=== PATIENT | female | born 2000 | race Caucasian/White ===

== ENCOUNTER 2023-11-14 09:10 | Emergency (ER) | payer BC, OTHER ==
[~2023-11-14] VITALS: Ht 172.7 cm; Wt 90.7 kg
[2023-11-14] MEDS: IV NORMAL SALINE 1000 ML BAG IV ONE (09:32)
[2023-11-14 09:38] LABS: BASOPHILS # (AUTO) 0.1 K/UL (0.0-0.2); EOSINOPHILS # (AUTO) 0.1 K/uL (0.0-0.7); EOSINOPHILS % (AUTO) 1.1 % (0.0-7.0); HEMATOCRIT 38.6 % (31.2-41.9); HEMOGLOBIN 12.6 g/dL (10.9-14.3); LYMPHOCYTES # (AUTO) 1.8 K/uL (0.8-4.8); LYMPHOCYTES % (AUTO) 28.5 % (20.5-51.5); MEAN CORPUSCULAR HEMOGLOBIN 27.2 uug (24.7-32.8); MEAN CORPUSCULAR HGB CONC 33 g/dL (32.3-35.6); MEAN CORPUSCULAR VOLUME 83.3 fL (75.5-95.3); MONOCYTES # (AUTO) 0.4 K/uL (0.1-1.30); MONOCYTES % (AUTO) 6.5 % (0.0-11.0); NEUTROPHILS % (AUTO) 62.9 % (38.5-71.5); PLATELET COUNT (AUTO) 267 K/uL (179-408); RED BLOOD CELL COUNT(AUTO) 4.63 MIL/uL (3.63-4.92); RED CELL DISTRIBUTION WIDTH 13.8 % (12.3-17.7); WHITE BLOOD COUNT (AUTO) 6.4 K/uL (3.8-11.8)
[2023-11-14] MEDS ORDERED: OMEPRAZOLE (09:40)
[2023-11-14] MEDS ORDERED: EXCEDRIN (09:40)
[2023-11-14] MEDS ORDERED: BENLYSTA (09:40)
[2023-11-14] MEDS ORDERED: MYCO250C PO (09:40)
[2023-11-14] MEDS ORDERED: SPIR50TA5 PO (09:40)
[2023-11-14] MEDS ORDERED: METO50TA16 PO (09:40)
[2023-11-14] MEDS ORDERED: DULO60CA45 PO (09:40)
[2023-11-14] MEDS ORDERED: QUET400T PO (09:40)
[2023-11-14 09:48] LABS: CALCIUM 8.9 mg/dL (8.5-10.1); CARBON DIOXIDE 25 mmol/L (21-32); CHLORIDE 103 mmol/L (98-107); CREATININE 0.9 mg/dL (0.6-1.3); GLUCOSE 86 mg/dL (74-106); POTASSIUM 3.5 mmol/L (3.5-5.1); SODIUM SERUM 138 mmol/L (136-145); UREA NITROGEN, BLOOD 8 mg/dL (7-18)
[2023-11-14 09:51] LABS: ETHANOL < 3 MG/DL (0-10)
[2023-11-14 09:52] LABS: AMMONIA 13 umol/L (11-32)
[2023-11-14 09:55] LABS: ALANINE AMINOTRANSFERASE 25 U/L (14-59); ALBUMIN 3.7 g/dL (3.4-5.0); ALKALINE PHOSPHATASE 107 U/L (50-136); ASPARTATE AMINOTRANSFERASE 14 U/L (15-37); BILIRUBIN,DIRECT 0.2 mg/dL (0.0-0.2); BILIRUBIN,TOTAL 0.9 mg/dL (0.2-1.0); TOTAL PROTEIN, SERUM 7.7 g/dL (6.4-8.2)
[2023-11-14 10:08] LABS: ACETAMINOPHEN < 2.0 ug/mL (10-30)
[2023-11-14 10:33] LABS: THYROID STIMULATING HORMONE 2.792 mIU/mL (0.358-3.740)
[2023-11-14 11:34] LABS: *BILIRUBIN,URIN NEGATIVE (NEGATIVE); *BLOOD, URINE NEGATIVE (NEGATIVE); *CLARITY,URINE CLEAR (CLEAR); *COLOR,URINE YELLOW (YELLOW); *KETONES,URINE NEGATIVE (NEGATIVE); *PROTEIN,URINE NEGATIVE (NEGATIVE); *UROBILINOGEN,URINE 0.2 E.U./dl (NORMAL); LEUKOCYTE ESTERASE ,URINE NEGATIVE (NEGATIVE); NITRITE, URINE NEGATIVE (NEGATIVE); PH,URINE 7.5 (5.0-8.0); UGLUCOSE NEGATIVE (NEGATIVE)
[2023-11-14 11:36] LABS: *URINE HCG, QUAL NEGATIVE (NEGATIVE)
[2023-11-14 11:52] LABS: *AMPHETAMINE, URINE NEGATIVE (NEGATIVE); *BARBITURATE, URINE NEGATIVE (NEGATIVE); *BENZODIAZEPINE, URINE POSITIVE (NEGATIVE); *CANNABINOID, URINE NEGATIVE (NEGATIVE); *COCCAINE, URINE NEGATIVE (NEGATIVE); *OPIATE, URINE NEGATIVE (NEGATIVE); *PHENCYCLIDINE SCREEN,URINE NEGATIVE (NEGATIVE); FENTANYL, URINE NEGATIVE (NEGATIVE)
[2023-11-14 12:23] VITALS: BP 113/71; O2SAT 100
== END 2023-11-14 12:23 | disposition home or self-care (01) ==
LOC: ER 09:10
DX: R56.9 Unspecified convulsions (principal); T41.295A Adverse effect of other general anesthetics, initial encounter; R10.2 Pelvic and perineal pain; Z79.899 Other long term (current) drug therapy; Z60.2 Problems related to living alone; Z88.1 Allergy status to other antibiotic agents; Y92.89 Other specified places as the place of occurrence of the external cause
CPT/HCPCS: 80076; 80048; 81003; 82140; 82962; 84703; 84443; 85025; 36415; 71045; 70450; 99284; 96360; 80299; 80320; 80307; J7040; A4606; A4663; G0480